=== PATIENT | female | born 2000 | race Caucasian/White ===

== ENCOUNTER → 2018-05-09 21:30 | Observation (INO) ==
[2018-05-09 18:06] LABS: Basophils % 0.1 %; Eosinophils % 0.3 %; Hematocrit 28.4 % (35.3-44.9); Hemoglobin 9.3 g/dL (11.5-15.4); Immature Granulocytes % 1.6 % (0-4); Lymphocytes # 1.6 K/mcL (0.6-4.6); Mean Corpuscular HGB Conc 32.7 g/dL (31.6-35.5); Mean Corpuscular Hemoglobin 27.6 pg (28.0-33.3); Mean Corpuscular Volume 84.3 fL (83.0-100.0); Monocytes # 0.5 K/mcL (0.0-1.3); Monocytes % 4.2 %; Neutrophils # 9.2 K/mcL (1.6-8.9); Platelet Count 174 K/mcL (140-400); Red Blood Count 3.37 M/mcL (3.82-4.97); Segmented Neutrophils % 79.8 %
[2018-05-09 18:07] LABS: Bilirubin,Urine Negative (Negative); Blood,Urine Large (Negative); Clarity,Urine Cloudy (Clear); Color,Urine Dark Yellow (Yellow); Glucose,Urine (UA) Normal (Normal); Ketones,Urine Trace mg/dL (Negative); Leukocyte Esterase,Urine Small (Negative); Nitrite,Urine Negative (Negative); Protein,Urine 30 mg/dL (Neg-Trace); Specific Gravity,Urine 1.026 (1.010-1.025); Urobilinogen,Urine Normal (Normal)
[2018-05-09 18:10] LABS: Bacteria,Urine Few per hpf (None-Few); Hyaline Casts,Urine Few per lpf (None-Few); RBC,Urine TNTC per hpf (0-3); Squamous Epithelial Cell,Urine Many per lpf (None-Few)
[2018-05-09 18:16] LABS: Amphetamine Screen,Urine Negative ng/mL (Cutoff=1000); Barbiturate Screen,Urine Negative ng/mL (Cutoff=200); Benzodiazepines Screen,Urine Negative ng/mL (Cutoff=200); Cannabinoid Screen,Urine Negative ng/mL (Cutoff = 50); Cocaine Screen,Urine Negative ng/mL (Cutoff= 300); Opiate Screen,Urine Negative ng/mL (Cutoff=300); Phencyclidine Screen,Urine Negative ng/mL (Cutoff=25)
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
[~2018-05-09 21:30] MED LIST: Rho Immune Globulin 1,500 UNIT SYRINGE IM ONE
== END | disposition home or self-care (01) ==
LOC: 1NENULAB
PROVIDERS: ADMIT Advanced Practice Midwife; ATTEND Advanced Practice Midwife

== ENCOUNTER → 2022-01-22 18:48 | Observation (INO) ==
[2022-01-22 14:45] LABS: Basophils % 0.3 %; Eosinophils % 0.3 %; Hematocrit 32.4 % (35.3-44.9); Hemoglobin 10.1 g/dL (11.5-15.4); Immature Granulocytes % 2.4 % (0-4); Lymphocytes # 1.9 K/mcL (0.6-4.6); Lymphocytes % 15.7 %; Mean Corpuscular HGB Conc 31.2 g/dL (31.6-35.5); Mean Corpuscular Hemoglobin 26.6 pg (28.0-33.3); Mean Corpuscular Volume 85.3 fL (83.0-100.0); Mean Platelet Volume 10.3 fL (9.4-12.4); Monocytes # 0.5 K/mcL (0.0-1.3); Monocytes % 4.3 %; Neutrophils # 9.2 K/mcL (1.6-8.9); Nucleated Red Blood Cells 0.3 /100 WBC (0); Platelet Count 197 K/mcL (140-400); Red Cell Distribution Width 14.7 % (11.5-14.5); White Blood Count 11.9 K/mcL (4.3-11.1)
[2022-01-22 14:56] LABS: Amorphous Sediment,Urine Few per hpf (None-Few); Bacteria,Urine Few per hpf (None-Few); Bilirubin,Urine Negative (Negative); Blood,Urine Small (Negative); Calcium Oxalate Crystals,Urine Present per hpf; Clarity,Urine Turbid (Clear); Color,Urine Yellow (Yellow); Glucose,Urine (UA) Normal (Normal); Ketones,Urine Negative (Negative); Leukocyte Esterase,Urine Small (Negative); Mucus,Urine Few per lpf (None-Few); Nitrite,Urine Negative (Negative); Protein,Urine Trace mg/dL (Neg-Trace); RBC,Urine 50-100 per hpf (0-3); Specific Gravity,Urine 1.017 (1.010-1.025); Squamous Epithelial Cell,Urine Few per hpf (None-Few); Urobilinogen,Urine Normal (Normal); WBC,Urine 0-3 per hpf (0-3)
[~2022-01-22 18:48] MED LIST changes: +*HR* Nalbuphine 10 MG/ML AMPUL IV PRN; +0.9 % Sodium Chloride 1,000 ML IVC SCH; +CefTRIAXone 1,000 MG VIAL ONE; -Rho Immune Globulin 1,500 UNIT SYRINGE IM ONE; +Ringers Solution, Lactated 1,000 ML IVC SCH; +Ringers Solution, Lactated 1,000 ML ONE; +cefTRIAXone 1,000 MG in 0.9 % Sodium Chloride 10 ML IVPB SCH; +cefTRIAXone 1,000 MG in 0.9 % Sodium Chloride Mini Bag 100 ML IVPB SCH
== END | disposition home or self-care (01) ==
LOC: 1NENULAB
PROVIDERS: ADMIT Obstetrics & Gynecology; ATTEND Obstetrics & Gynecology

== ENCOUNTER 2022-03-02 23:04 | Inpatient (IN) ==
[~2022-03-02 23:04] MED LIST changes: +*HR* Nalbuphine 10 MG/ML AMPUL ONE; -0.9 % Sodium Chloride 1,000 ML IVC SCH; -CefTRIAXone 1,000 MG VIAL ONE; +Famotidine 20 MG/2 ML VIAL IVP PRN; +Metoclopramide 10 MG/2 ML VIAL IVP PRN; +Naloxone 0.4 MG/ML INJ IVP PRN; -cefTRIAXone 1,000 MG in 0.9 % Sodium Chloride 10 ML IVPB SCH; -cefTRIAXone 1,000 MG in 0.9 % Sodium Chloride Mini Bag 100 ML IVPB SCH
[2022-03-02 23:20] LABS: Basophils % 0.2 %; Eosinophils % 0.2 %; Hematocrit 29.1 % (35.3-44.9); Hemoglobin 8.9 g/dL (11.5-15.4); Immature Granulocytes % 1.2 % (0-4); Lymphocytes # 1.9 K/mcL (0.6-4.6); Lymphocytes % 16.9 %; Mean Corpuscular HGB Conc 30.6 g/dL (31.6-35.5); Mean Corpuscular Hemoglobin 25.1 pg (28.0-33.3); Mean Corpuscular Volume 82.2 fL (83.0-100.0); Mean Platelet Volume 11.6 fL (9.4-12.4); Monocytes # 0.6 K/mcL (0.0-1.3); Monocytes % 5.2 %; Neutrophils # 8.6 K/mcL (1.6-8.9); Nucleated Red Blood Cells 0.5 /100 WBC (0); Platelet Count 173 K/mcL (140-400); Red Blood Count 3.54 M/mcL (3.82-4.97); Red Cell Distribution Width 15.8 % (11.5-14.5); Segmented Neutrophils % 76.3 %; White Blood Count 11.3 K/mcL (4.3-11.1)
[2022-03-02 23:26] LABS: Amphetamine Screen,Urine Negative ng/mL (Cutoff=1000); Barbiturate Screen,Urine Negative ng/mL (Cutoff=200); Benzodiazepines Screen,Urine Negative ng/mL (Cutoff=200); Cannabinoid Screen,Urine Negative ng/mL (Cutoff = 50); Cocaine Screen,Urine Negative ng/mL (Cutoff= 300); Opiate Screen,Urine Negative ng/mL (Cutoff=300); Phencyclidine Screen,Urine Negative ng/mL (Cutoff=25)
[2022-03-02] MEDS ORDERED: DESMOPRESSIN ACETATE IVPB ONE (23:36)
[2022-03-02] MEDS ORDERED: SODIUM CHLORIDE 0.9% IVPB ONE (23:36)
[2022-03-02] MEDS ORDERED: *HR* Morphine Sulfate/PF 10 MG/10 ML AMPUL ONE (23:47)
[2022-03-02] MEDS ORDERED: *HR* FentaNYL (PF) 100 MCG/2 ML VIAL ONE (23:47)
[2022-03-02 23:50] LABS: Amphetamine Screen,Urine Negative ng/mL (Cutoff=1000); Barbiturate Screen,Urine Negative ng/mL (Cutoff=200); Benzodiazepines Screen,Urine Negative ng/mL (Cutoff=200); Cannabinoid Screen,Urine Negative ng/mL (Cutoff = 50); Cocaine Screen,Urine Negative ng/mL (Cutoff= 300); Opiate Screen,Urine Negative ng/mL (Cutoff=300); Phencyclidine Screen,Urine Negative ng/mL (Cutoff=25)
[2022-03-02] MEDS ORDERED: *HR* Phenylephrine 10 MG/ML VIAL ONE (23:52)
[2022-03-02 23:53] LABS: Influenza A PCR Negative (Negative); Influenza B PCR Negative (Negative); Resp. Syncytial Virus PCR Negative (Negative)
[2022-03-02 23:54] LABS: SARS-CoV-2 by PCR (In House) Negative (Negative)
[2022-03-02] MEDS ORDERED: Ondansetron 4 MG/2 ML VIAL ONE (23:55)
[2022-03-02] MEDS ORDERED: Lidocaine -MPF 2% 5 ML VIAL ONE (23:57)
[2022-03-03] MEDS ORDERED: *HR* Midazolam HCl 2 MG/2 ML VIAL ONE (00:02)
[2022-03-03] MEDS ORDERED: Oxytocin 30 UNIT/503 ML BAG IVC ONE (00:18)
[2022-03-03] MEDS ORDERED: Acetaminophen IV 1,000 MG/100 ML BAG IVPB ONE (00:44)
[2022-03-03] MEDS ORDERED: *HR* HYDROmorphone PF 0.5 MG/0.5 ML SYRINGE IVP PRN (00:47)
[2022-03-03] MEDS ORDERED: Promethazine 6.25 MG in Water for inj. (sterile) 20 ML IVPB PRN (00:47)
[2022-03-03] MEDS ORDERED: Naloxone 0.4 MG/ML INJ IVP PRN (00:47)
[2022-03-03] MEDS ORDERED: Ketorolac 30 MG/ML VIAL ONE (00:50)
[2022-03-03] MEDS ORDERED: Simethicone 80 MG TAB.CHEW PO PRN (03:07)
[2022-03-03] MEDS ORDERED: Metoclopramide 10 MG/2 ML VIAL IVP PRN (03:07)
[2022-03-03] MEDS ORDERED: Ondansetron 4 MG/2 ML VIAL IVP PRN (03:07)
[2022-03-03] MEDS ORDERED: Ringers Solution, Lactated 1,000 ML IVC SCH (03:07)
[2022-03-03] MEDS ORDERED: Rho Immune Globulin 1,500 UNIT SYRINGE IM ONE ×2 (03:07→21:45)
[2022-03-03] MEDS ORDERED: Oxytocin 30 UNIT/503 ML BAG IVC SCH (03:07)
[2022-03-03 04:11] LABS: Basophils % 0.1 %; Hematocrit 26.3 % (35.3-44.9); Lymphocytes # 1.6 K/mcL (0.6-4.6); Lymphocytes % 9.8 %; Mean Corpuscular HGB Conc 30.4 g/dL (31.6-35.5); Mean Corpuscular Hemoglobin 25.2 pg (28.0-33.3); Mean Corpuscular Volume 82.7 fL (83.0-100.0); Mean Platelet Volume 11.5 fL (9.4-12.4); Monocytes # 0.7 K/mcL (0.0-1.3); Monocytes % 4.5 %; Neutrophils # 13.5 K/mcL (1.6-8.9); Nucleated Red Blood Cells 0.3 /100 WBC (0); Platelet Count 152 K/mcL (140-400); Red Blood Count 3.18 M/mcL (3.82-4.97); Segmented Neutrophils % 84.6 %
[2022-03-03] MEDS: Ibuprofen 600 MG TABLET PO SCH ×3 (06:02→20:31)
[2022-03-03] MEDS: Acetaminophen 325 MG TABLET PO SCH ×3 (06:02→20:32)
[2022-03-03] MEDS ORDERED: NON-FORMULARY MEDICATION 1 EACH EACH (Prenatal Vitamins 1 TAB) PO SCH (09:00)
[2022-03-03] MEDS: Prenatal Vit/FA 1 EACH TABLET PO SCH (09:19)
[2022-03-03] MEDS: metroNIDAZOLE 500 MG TABLET PO SCH ×2 (09:20→19:44)
[2022-03-03] MEDS: ceFAZolin 2,000 MG in Water for inj. (sterile) 10 ML IVP SCH ×2 (09:20→19:43)
[2022-03-03] MEDS: *HR* OxyCODONE Immed Rel 5 MG TABLET PO PRN ×2 (11:38→16:57)
[2022-03-04] MEDS: *HR* OxyCODONE Immed Rel 5 MG TABLET PO PRN ×3 (00:32→15:08)
[2022-03-04] MEDS ORDERED: Rho Immune Globulin 1,500 UNIT SYRINGE IM ONE (03:45)
[2022-03-04] MEDS: Acetaminophen 325 MG TABLET PO SCH ×3 (03:54→21:05)
[2022-03-04] MEDS: Ibuprofen 600 MG TABLET PO SCH ×3 (03:54→18:54)
[2022-03-04] MEDS: ceFAZolin 2,000 MG in Water for inj. (sterile) 10 ML IVP SCH (03:55)
[2022-03-04 04:41] LABS: Basophils % 0.1 %; Eosinophils # 0.1 K/mcL (0.0-0.6); Eosinophils % 0.5 %; Hematocrit 25.1 % (35.3-44.9); Hemoglobin 7.7 g/dL (11.5-15.4); Immature Granulocytes % 1.2 % (0-4); Lymphocytes # 2.3 K/mcL (0.6-4.6); Lymphocytes % 20.1 %; Mean Corpuscular HGB Conc 30.7 g/dL (31.6-35.5); Mean Corpuscular Hemoglobin 24.9 pg (28.0-33.3); Mean Corpuscular Volume 81.2 fL (83.0-100.0); Mean Platelet Volume 11.3 fL (9.4-12.4); Monocytes # 0.5 K/mcL (0.0-1.3); Monocytes % 4.1 %; Neutrophils # 8.4 K/mcL (1.6-8.9); Nucleated Red Blood Cells 0.2 /100 WBC (0); Platelet Count 145 K/mcL (140-400); Red Blood Count 3.09 M/mcL (3.82-4.97); Red Cell Distribution Width 16.3 % (11.5-14.5); White Blood Count 11.3 K/mcL (4.3-11.1)
[2022-03-04] MEDS: Prenatal Vit/FA 1 EACH TABLET PO SCH (09:22)
[2022-03-04] MEDS: metroNIDAZOLE 500 MG TABLET PO SCH ×3 (09:22→21:05)
[2022-03-04] MEDS ORDERED: Lanolin 7 G OINT...G. TP PRN (09:31)
[2022-03-04] MEDS ORDERED: *HR* OxyCODONE Immed Rel 5 MG TABLET PO ONE (10:20)
[2022-03-04 20:23] VITALS: O2SAT 99
[2022-03-05] MEDS: Ibuprofen 600 MG TABLET PO SCH ×2 (01:15→09:09)
[2022-03-05] MEDS: Acetaminophen 325 MG TABLET PO SCH (06:37)
[2022-03-05 07:12] VITALS: BP 133/87; PULSE 92; TEMP 98.2
[2022-03-05] MEDS: Prenatal Vit/FA 1 EACH TABLET PO SCH (09:08)
== END 2022-03-05 11:05 | disposition home or self-care (01) | DRG 787 ==
LOC: 1NENULAB → 1NENUOBS 03-03 03:14
PROVIDERS: ADMIT Registered Nurse; ATTEND Registered Nurse